=== PATIENT | male | born 1980 | race Caucasian/White ===

== ENCOUNTER 2017-05-21 06:15 | Inpatient (IN) | payer OTHER ==
[2017-05-20 14:09] VITALS: BMI 35.7
--- NOTE | 2017-05-21 05:42 | HP ---
HISTORY OF PRESENT ILLNESS: Mr. Lewis is a pleasant gentleman who presents for evaluation of chron ic course of right C7 radiculopathy which manifests his pain, numbness, and weakness. This has been progressive for the triceps and has atrophy in the right upper extremity. MRI on disk at the cervica l spine it shows a disk osteophyte complex at C6-C7 which fits well with his clinical symptoms. He h as had injections, therapy, and medications with little benefit, and preferred to move forward with s urgery if possible. PAST MEDICAL HISTORY: Significant for back pain. CURRENT MEDICATIONS: Lisinopril, hydrochlorothiazide. ALLERGIES: No known drug allergies. PHYSICAL EXAMINATION: GENERAL: Patient is alert and oriented x3. NEUROLOGIC: Positive Spurling's maneuver to the right. There is triceps weakness grading 4/5 with e xtension of the elbow. Otherwise, his upper extremity motor exam is mostly normal. ASSESSMENT: Cervical radiculopathy, arm weakness. PLAN: Dr. Antunez met with the patient, reviewed imaging and ultimately advocated for a C6-C7 ACDF. H e explained to the patient the risks, benefits, and alternatives to the procedure. The patient expre ssed understanding and would like to move forward with surgery as discussed. I do believe the patien t is mentally competent and capable of making medical decisions for himself and we will move forward with surgery as planned.
[2017-05-21] MEDS ORDERED: CEFAZOLIN/Water 2 GM/20 ML SYRINGE ONE ×2 (08:13→15:06)
[2017-05-21] MEDS ORDERED: Thrombin 5000 UNITS/5 ML VIAL ONE (08:24)
[2017-05-21] MEDS ORDERED: Fentanyl 250 MCG/5 ML VIAL ONE (08:35)
--- NOTE | 2017-05-21 09:53 | OP ---
DATE OF PROCEDURE: 05/21/2017 SURGEON: Teo Antunez M.D. CHANGE CONTROL SPECIALIST: Adebayo Givens PA-C INDICATION: Pain. DIAGNOSIS: Cervical radiculopathy. PROCEDURES: Anterior cervical discectomy and fusion C6-7. ANESTHESIA: General. TECHNIQUE: The patient was brought into the operating room and placed under general anesthesia. He was placed on the table in a supine position. A transverse incision was planned over the lateral asp ect of the neck on the right. After prepping and draping and after an appropriate operative pause, t he incision was created. The underlying platysma muscles identified and incised. A blunt tissue nicole ne anterior to the sternocleidomastoid muscle was used to gain access to the prevertebral space. Mana f-retaining retractors were placed in the wound for optimal exposure. After confirming the appropria te level at C6-7, an annulotomy was performed in the disk space. All disk material as well as anteri or and posterior osteophytes were removed. After complete decompression, a 7 mm lordotic PEEK cage p acked with allograft and autograft material was placed within the interbody space. An anterior cervi todd plate was then fashioned in front of the spine and secured with a total of 4 fixed screws. Midli ne and lateral structures were inspected and found to be free from significant trauma. The wound was irrigated. Hemostasis was maintained throughout. The wound was then closed in anatomic layers and a pressure dressing was applied. There were no known procedural complications.
[2017-05-21] MEDS ORDERED: tiZANidine HCl 4 MG TAB ONE (10:55)
[2017-05-21] MEDS ORDERED: Cyclobenzaprine 10 MG TAB ONE (10:58)
--- NOTE | 2017-05-21 12:27 | EKG ---
Test Reason : PREOP Blood Pressure : / mmHG Vent. Rate : 063 BPM Atrial Rate : 063 BPM P-R Int : 144 ms QRS Dur : 094 ms QT Int : 418 ms P-R-T Axes : 028 -33 -09 degrees QTc Int : 427 ms Normal sinus rhythm Left axis deviation Abnormal ECG No previous ECGs available Confirmed by EVITA NIETO ([id number]) on 05/21/2017 12:26:51 PM Referred By: CLAUDIA Confirmed By:EVITA NIETO
[2017-05-21] MEDS ORDERED: Ketorolac Tromethamine 30 MG/ML VIAL ONE (15:26)
[2017-05-21] MEDS ORDERED: Lidocaine 1% PF 5 ML VIAL ONE (15:26)
[2017-05-21] MEDS ORDERED: Propofol 200 MG/20 ML VIAL ONE (15:26)
[2017-05-21] MEDS ORDERED: Glycopyrrolate 0.2 MG/ML 5 ML SYRINGE ONE (15:26)
[2017-05-21] MEDS ORDERED: Ondansetron HCl/PF 4 MG/2 ML Vial ONE (15:26)
[2017-05-21] MEDS ORDERED: PHENYLEPHRINE-NS 100 MCG/ML 10 ML SYRINGE ONE (15:26)
[2017-05-21] MEDS ORDERED: Dexamethasone 20 MG/5 ML VIAL ONE (15:26)
[2017-05-21] MEDS ORDERED: Acetaminophen/Codeine 30-300mg Tablet ONE (16:00)
== END 2017-05-21 16:25 | disposition home or self-care (01) | DRG 30 ==
LOC: SURG A 06:15
PROVIDERS: ADMIT Neurological Surgery; ATTEND Neurological Surgery
PROC: 0RT30ZZ Resection of Cervical Vertebral Disc, Open Approach (ICD-10-PCS; principal; 2017-05-21)
PROC: 0RG20A0 Fusion of 2 or more Cervical Vertebral Joints with Interbody Fusion Device, Anterior Approach, Anterior Column, Open Approach (ICD-10-PCS; 2017-05-21)
DX: M54.12 Radiculopathy, cervical region (principal); I10 Essential (primary) hypertension; G43.909 Migraine, unspecified, not intractable, without status migrainosus; F17.210 Nicotine dependence, cigarettes, uncomplicated; R73.03 Prediabetes
CPT/HCPCS: 76001; 93005; 93010; C1713; C1768; J0131; J1100; J1885; J2001; J2405; J2704; J3010